=== PATIENT | female | born 1965 | race Caucasian/White ===

== ENCOUNTER 2025-06-02 09:19 | Outpatient (CLI) | payer OTHER | END 2025-06-02 09:20 | disposition home or self-care (01) | LOC: CSHCT 09:19 | PROVIDERS: ATTEND Student in an Organized Health Care Education/Training Program | DX: E78.2 Mixed hyperlipidemia (principal); I31.39 Other pericardial effusion (noninflammatory) | CPT/HCPCS: 75571 ==